=== PATIENT | female | born 1990 | race Caucasian/White ===

== ENCOUNTER 2024-09-30 19:02 | Emergency (ER) | payer OTHER, SELFPAY ==
--- NOTE | 2024-09-30 19:17 | ED_ITS ---
HPI - URI/Sore Throat General Chief Complaint: Upper Respiratory Infection Stated Complaint: sinus infection Source: patient and RN notes reviewed Mode of arrival: ambulatory Limitations: no limitations History of Present Illness HPI Narrative: 33-year-old female presented for complaint of headache, body aches, sinus pressure/congestion, cough, fever/chills. Onset 2 days. Children with similar symptoms. Denies sob, wheezing, n/v/d. MD elicited complaint: cough Related Data Allergies Allergy/AdvReac Type Severity Reaction Status Date / Time adhesive tape Allergy Unknown RASH, Verified 09/30/24 19:29 BLISTERS Review of Systems Review of Systems: Per HPI Exam Narrative: GENERAL: Mildly Ill-appearing, nontoxic no acute distress. EYES: PERRLA, conjunctivae clear ENT: Mucous membranes moist. TM pearly garcia with dull light reflex bilaterally; no tragal tenderness. Oropharynx not erythematous without lesions or exudate, no drooling, no hoarseness, no trismus, uvula midline. CHEST: Clear to auscultation, breath sounds equal. No wheezing, rhonchi, rales, or stridor. No respiratory distress, speaks in full sentences. HEART: Regular rate and rhythm. SKIN: Warm, dry, no rash. NEURO: Alert and oriented x3. PSYCH: Normal mood and affect Course Course Emergency Course: Patient is aware of diagnosis, understands and agrees to treatment plan. Anticipatory guidance given. Patient agrees to follow-up as directed and is aware of reasons to seek care at the emergency department. Portions of this record may have been created with voice recognition software Level of Care: Express Care Visit Vital Signs Vital signs: Vital Signs Temperature 98.5 F 09/30/24 19:28 Pulse Rate 81 09/30/24 19:28 Respiratory Rate 18 09/30/24 19:28 Blood Pressure 117/72 09/30/24 19:28 Pulse Oximetry 99 09/30/24 19:28 Oxygen Delivery Room Air 09/30/24 19:28 Temperature 98.5 F 09/30/24 19:28 Pulse Rate 81 09/30/24 19:28 Respiratory Rate 18 09/30/24 19:28 Blood Pressure 117/72 09/30/24 19:28 Pulse Oximetry 99 09/30/24 19:28 Oxygen Delivery Room Air 09/30/24 19:28 reviewed MDM - URI/Sore Throat MDM Narrative Medical decision making narrative: POS flu. Discussed physical exam findings. Advised supportive measures and signs/symptoms to go to the ER. Pt is appropriate for outpt treatment and f/u. Differential Diagnosis Differential diagnosis: Likely upper respiratory infection, sinusitis, viral infection, bronchitis and influenza Lab Data Labs: Lab Results 09/30/24 Range/Units 19:34 POC Influenza A Ag Positive (Negative) POC Influenza B Ag Negative (Negative) POC SARS CoV-2 Ag Negative (Negative) Discharge Plan Discharge Clinical Impression: Influenza Patient Disposition: Home, Self-Care Condition: Stable Instructions: Antibiotic Form, Influenza (ED) Additional Instructions: Influenza positive You should avoid crowds until you are fever free for 24 hours without the use of fever reducing medications, or the symptoms are improved Rest. Drink plenty of fluids. Tylenol 1000mg every 8 hours as needed for pain/fever Recommend Flonase spray and Zyrtec (or Claritin/Carmen) for sinus pressure/congestion over the counter Cough syrup may cause drowsiness; avoid driving or take it at night time. Follow up with your primary care provider as needed Go to the ER for worsening symptoms or concerns Patient Language: [place] Follow-up/Referrals: PHYSICIAN,[employer] [facility] [Primary Care Provider] - Stand Alone Forms: Work/School Release IP Time of Disposition: 19:43
[2024-09-30 19:28] VITALS: BP 117/72; PULSE 81; RESP 18; TEMP 36.9; O2SAT 99
[2024-09-30 19:36] LABS: EDCOVIDSCREEN Negative (Negative); EDINFLUASCREEN Positive (Negative); EDINFLUBSCREEN Negative (Negative)
== END 2024-09-30 19:56 | disposition home or self-care (01) ==
PROVIDERS: Emergency Provider Nurse Practitioner Family
DX: J10.1 Influenza due to other identified influenza virus with other respiratory manifestations (principal); Z20.822 Contact with and (suspected) exposure to COVID-19
CPT/HCPCS: 87426; 87804; 99202; G0463